=== PATIENT | male | born 1940 | race Caucasian/White ===

== ENCOUNTER → 2023-12-28 | Outpatient (CLI) | payer MEDICARE, BC, SELFPAY ==
[2023-12-28 09:40] LABS: Basophils # (Auto) 0.1 Thou/mm3 (0.0-0.2); Basophils % (Auto) 2 % (0-2.5); Eosinophils # (Auto) 0.3 Thou/mm3 (0.0-0.5); Eosinophils % (Auto) 6 % (0-10); Hemoglobin 13.9 g/dL (13.5-16.0); Immature Granulocytes % (Auto) 0 % (0-0); Immature Granulocytes Auto 0.01 Thou/mm3 (0.00-0.00); Lymphocytes # (Auto) 1.8 Thou/mm3 (1.0-4.8); Lymphocytes % (Auto) 34 % (10-50); Mean Corpuscular HGB Conc 33.9 g/dl (31.0-37.0); Mean Corpuscular Hemoglobin 28.8 pg (25.0-35.0); Mean Corpuscular Volume 85 fL (80-100); Monocytes # (Auto) 0.5 Thou/mm3 (0.0-0.8); Monocytes % (Auto) 8 % (0-12); Neutrophils # (Auto) 2.6 Thou/mm3 (1.8-7.7); Neutrophils % (Auto) 49 % (37-80); Nucleated Red Blood Cell % 0 /100 WBC (0); Platelet Count 220 Thou/mm3 (140-440); RDW Standard Deviation 39.7 fL (35.1-43.9); Red Blood Count 4.82 Miln/mm3 (4.50-5.90); White Blood Count 5.3 Thou/mm3 (3.8-10.6)
[2023-12-28 10:02] LABS: Albumin, Serum 4.4 gm/dL (3.4-4.8); Anion Gap 8 (7-16); BUN/Creatinine Ratio 13 Ratio (12-20); Blood Urea Nitrogen 24 mg/dL (9-23); Calcium 9.2 mg/dL (8.3-10.6); Calcium (Corrected) 9.2 mg/dL (8.5-10.1); Carbon Dioxide 24.3 mMol/L (20.0-31.0); Chloride 108 mMol/L (98-107); Creatinine (Component) 1.8 mg/dL (0.6-1.3); Glucose 176 mg/dL (74-106); Osmolality,Calculated 287 (275-295); Phosphorous 3.7 mg/dL (2.4-5.1); Potassium 4.2 mMol/L (3.4-5.1); Sodium 140 mMol/L (136-145); eGFR 37 See Note
[2023-12-28 10:03] LABS: Parathyroid Hormone Intact 88.4 pg/ml (18.5-88.0)
[2023-12-28 10:16] LABS: Collection Type, Urine Clean Catch; Squamous Epithelial Cell,Urine 0 /hpf (0-5)
[2023-12-28 10:46] LABS: Bacteria,Urine 1+; Bilirubin,Urine Negative (Negative); Blood,Urine Negative (Negative); Clarity,Urine Clear (Clear/Hazy); Color,Urine Lt-Yellow (Lt Yel-Yel); Glucose, Urine Negative (Negative); Ketones,Urine Negative (Negative); Leukocyte Esterase,Urine Positive (Negative); Nitrite,Urine Negative (Negative); Protein,Urine 1+ (Neg - Trace); RBC,Urine 12 /hpf (0-3); Specific Gravity,Urine 1.017 (1.001-1.035); Urobilinogen,Urine Negative mg/dL (0.0-1.0); WBC,Urine 59 /hpf (0-5)
[2023-12-28 10:50] LABS: Creatinine MALB Rnd Ur 90 mg/dL (30-125); Microalbumin Creat Ratio 93 mg/gCrea (<30); Microalbumin, Random Urine 84 mg/L (0-300)
== END | disposition home or self-care (01) ==
LOC: COPL 09:07
PROVIDERS: PCP Family Medicine; Referring Provider Internal Medicine; Visit Provider Internal Medicine
DX: I12.9 Hypertensive chronic kidney disease with stage 1 through stage 4 chronic kidney disease, or unspecified chronic kidney disease (principal); N18.30 Chronic kidney disease, stage 3 unspecified
CPT/HCPCS: 36415; 80069; 81001; 82043; 82570; 83970; 85025

== ENCOUNTER → 2024-04-10 | Outpatient (CLI) | payer MEDICARE, BC, SELFPAY ==
[2024-04-10 13:11] LABS: Collection Type, Urine Clean Catch; Squamous Epithelial Cell,Urine 0 /hpf (0-5)
[2024-04-10 13:33] LABS: Bilirubin,Urine Negative (Negative); Blood,Urine Negative (Negative); Clarity,Urine Clear (Clear/Hazy); Color,Urine Lt-Yellow (Lt Yel-Yel); Glucose, Urine 3+ (Negative); Ketones,Urine Negative (Negative); Leukocyte Esterase,Urine Negative (Negative); Nitrite,Urine Negative (Negative); Protein,Urine Trace (Neg - Trace); RBC,Urine 2 /hpf (0-3); Specific Gravity,Urine 1.015 (1.001-1.035); Urobilinogen,Urine Negative mg/dL (0.0-1.0); WBC,Urine 14 /hpf (0-5)
[2024-04-10 13:39] LABS: Albumin, Serum 4.4 gm/dL (3.4-4.8); Anion Gap 9 (7-16); BUN/Creatinine Ratio 17 Ratio (12-20); Blood Urea Nitrogen 25 mg/dL (9-23); Carbon Dioxide 25.6 mMol/L (20.0-31.0); Chloride 107 mMol/L (98-107); Creatinine (Component) 1.5 mg/dL (0.6-1.3); Glucose 143 mg/dL (74-106); Osmolality,Calculated 289 (275-295); Phosphorous 3.3 mg/dL (2.4-5.1); Potassium 4.1 mMol/L (3.4-5.1); Sodium 142 mMol/L (136-145); eGFR 45 See Note
[2024-04-10 13:54] LABS: Culture Indicated,Urine Yes
== END | disposition home or self-care (01) ==
LOC: COPL 11:55
PROVIDERS: PCP Family Medicine; Referring Provider Nurse Practitioner Family; Visit Provider Internal Medicine
DX: I12.9 Hypertensive chronic kidney disease with stage 1 through stage 4 chronic kidney disease, or unspecified chronic kidney disease (principal); N18.30 Chronic kidney disease, stage 3 unspecified
CPT/HCPCS: 36415; 80069; 81001; 83970; 87086

== ENCOUNTER → 2024-04-13 | Outpatient (CLI) | payer MEDICARE, BC, SELFPAY ==
[2024-04-13 08:56] LABS: Basophils # (Auto) 0.1 Thou/mm3 (0.0-0.2); Basophils % (Auto) 2 % (0-2.5); Eosinophils # (Auto) 0.3 Thou/mm3 (0.0-0.5); Eosinophils % (Auto) 6 % (0-10); Hematocrit 38.2 % (41.0-53.0); Hemoglobin 13.2 g/dL (13.5-16.0); Immature Granulocytes % (Auto) 0 % (0-0); Immature Granulocytes Auto 0.01 Thou/mm3 (0.00-0.00); Lymphocytes # (Auto) 2.1 Thou/mm3 (1.0-4.8); Lymphocytes % (Auto) 37 % (10-50); Mean Corpuscular HGB Conc 34.6 g/dl (31.0-37.0); Mean Corpuscular Hemoglobin 29.6 pg (25.0-35.0); Mean Corpuscular Volume 86 fL (80-100); Monocytes # (Auto) 0.5 Thou/mm3 (0.0-0.8); Monocytes % (Auto) 8 % (0-12); Neutrophils # (Auto) 2.7 Thou/mm3 (1.8-7.7); Neutrophils % (Auto) 47 % (37-80); Nucleated Red Blood Cell % 0 /100 WBC (0); Platelet Count 186 Thou/mm3 (140-440); RDW Standard Deviation 40.5 fL (35.1-43.9); Red Blood Count 4.46 Miln/mm3 (4.50-5.90); White Blood Count 5.7 Thou/mm3 (3.8-10.6)
[2024-04-13 09:03] LABS: Glucose Estimated Average 151 mg/dL (80-131); Hemoglobin A1C 6.9 % Hgb (4.8-6.0)
[2024-04-13 09:20] LABS: Vitamin B12 257 pg/mL (211-911); Vitamin D 25 Hydroxy Total 35.1 ng/mL (7.3-40.2)
[2024-04-13 09:22] LABS: PSA Medicare Annual Scrn 0.03 ng/mL (0-4.00)
[2024-04-13 09:31] LABS: Alanine Aminotransferase 15 U/L (10-49); Albumin, Serum 4.2 gm/dL (3.4-4.8); Albumin/Globulin Ratio 2.2 (1.2-2.2); Alkaline Phosphatase 70 U/L (46-116); Anion Gap 8 (7-16); Aspartate Amino Transferase 15 U/L (0-34); BUN/Creatinine Ratio 15 Ratio (12-20); Bilirubin,Total 0.5 mg/dL (0.3-1.2); Blood Urea Nitrogen 22 mg/dL (9-23); Calcium 9.1 mg/dL (8.3-10.6); Calcium (Corrected) 9.1 mg/dL (8.5-10.1); Carbon Dioxide 24.6 mMol/L (20.0-31.0); Cardiac Risk Estimate 2.3 RATIO (4.0-6.7); Chloride 111 mMol/L (98-107); Cholesterol 89 mg/dL (132-200); Creatinine (Component) 1.5 mg/dL (0.6-1.3); Globulin 1.9 gm/dL (2.3-3.5); Glucose 131 mg/dL (74-106); HDL Cholesterol 38 mg/dL (40-60); LDL Cholesterol,Calculated 29 mg/dL (0-130); Osmolality,Calculated 292 (275-295); Potassium 4.5 mMol/L (3.4-5.1); Sodium 144 mMol/L (136-145); Thyroid Stimulating Hormone 2.34 uIU/mL (0.55-4.78); Total Protein 6.1 gm/dL (5.7-8.2); Triglycerides 110 mg/dL (30-150); Uric Acid 4.6 mg/dL (3.7-9.2); eGFR 45 See Note
[2024-04-13 09:35] LABS: Collection Type, Urine Clean Catch; Squamous Epithelial Cell,Urine 0 /hpf (0-5)
[2024-04-13 10:17] LABS: Bilirubin,Urine Negative (Negative); Blood,Urine Trace (Negative); Clarity,Urine Clear (Clear/Hazy); Color,Urine Lt-Yellow (Lt Yel-Yel); Glucose, Urine Negative (Negative); Hyaline Casts,Urine < 1 /hpf (0-1); Ketones,Urine Negative (Negative); Leukocyte Esterase,Urine Negative (Negative); Nitrite,Urine Negative (Negative); Protein,Urine Trace (Neg - Trace); RBC,Urine 18 /hpf (0-3); Specific Gravity,Urine 1.015 (1.001-1.035); Urobilinogen,Urine Negative mg/dL (0.0-1.0); WBC,Urine 37 /hpf (0-5)
[2024-04-13 10:32] LABS: Creatinine MALB Rnd Ur 70 mg/dL (30-125); Microalbumin Creat Ratio 74 mg/gCrea (<30); Microalbumin, Random Urine 52 mg/L (0-300)
== END | disposition home or self-care (01) ==
PROVIDERS: PCP Internal Medicine; Referring Provider Internal Medicine; Visit Provider Internal Medicine
DX: E78.5 Hyperlipidemia, unspecified (principal); I12.9 Hypertensive chronic kidney disease with stage 1 through stage 4 chronic kidney disease, or unspecified chronic kidney disease; E11.22 Type 2 diabetes mellitus with diabetic chronic kidney disease; N18.30 Chronic kidney disease, stage 3 unspecified; D51.9 Vitamin B12 deficiency anemia, unspecified; E55.9 Vitamin D deficiency, unspecified
CPT/HCPCS: 36415; 80053; 80061; 81001; 82043; 82306; 82570; 82607; 83036; 84153; 84443; 84550; 85025; G0103

== ENCOUNTER → 2024-05-15 | Outpatient (CLI) | payer MEDICARE, BC, SELFPAY ==
--- NOTE | 2024-05-15 14:17 | XR_ITS ---
Examination: Abdomen AP single view Technique: AP portable supine abdomen, single view Exam date and time: May 15, 2024 1419 hours INDICATIONS: Abdominal pain beginning 3 weeks ago INDICATIONS: Diagnosis bladder cancer, post removal right kidney and bladder reconstruction FINDINGS: Numerous surgical clips in the pelvis Mild small bowel ileus Abundant stool in the colon No obstruction No free air IMPRESSION: Abundant stool in the colon, no obstruction Mild small bowel ileus
== END | disposition home or self-care (01) ==
LOC: CDIM 13:49
PROVIDERS: PCP Nurse Practitioner Family; Referring Provider Nurse Practitioner Family; Visit Provider Nurse Practitioner Family
DX: K59.00 Constipation, unspecified (principal)
CPT/HCPCS: 74018

== ENCOUNTER → 2024-06-27 | Outpatient (BNVA) | payer MEDICARE, BC, SELFPAY | END | disposition home or self-care (01) | PROVIDERS: PCP Family Medicine; Referring Provider Family Medicine; Visit Provider Urology | DX: C64.1 Malignant neoplasm of right kidney, except renal pelvis (principal); C67.9 Malignant neoplasm of bladder, unspecified; I25.10 Atherosclerotic heart disease of native coronary artery without angina pectoris; N18.30 Chronic kidney disease, stage 3 unspecified; Z86.73 Personal history of transient ischemic attack (TIA), and cerebral infarction without residual deficits; K21.9 Gastro-esophageal reflux disease without esophagitis | CPT/HCPCS: 81003; 99212; G0463 ==

== ENCOUNTER → 2024-07-31 | Outpatient (CLI) | payer MEDICARE, BC, SELFPAY ==
[2024-07-31 14:30] LABS: Collection Type, Urine Clean Catch
[2024-07-31 14:46] LABS: Basophils # (Auto) 0.1 Thou/mm3 (0.0-0.2); Basophils % (Auto) 2 % (0-2.5); Eosinophils # (Auto) 0.3 Thou/mm3 (0.0-0.5); Eosinophils % (Auto) 3 % (0-10); Hematocrit 37.5 % (41.0-53.0); Hemoglobin 12.9 g/dL (13.5-16.0); Immature Granulocytes % (Auto) 0 % (0-0); Immature Granulocytes Auto 0.03 Thou/mm3 (0.00-0.00); Lymphocytes # (Auto) 2.5 Thou/mm3 (1.0-4.8); Lymphocytes % (Auto) 32 % (10-50); Mean Corpuscular HGB Conc 34.4 g/dl (31.0-37.0); Mean Corpuscular Hemoglobin 29.5 pg (25.0-35.0); Mean Corpuscular Volume 86 fL (80-100); Monocytes # (Auto) 0.6 Thou/mm3 (0.0-0.8); Monocytes % (Auto) 7 % (0-12); Neutrophils # (Auto) 4.4 Thou/mm3 (1.8-7.7); Neutrophils % (Auto) 56 % (37-80); Nucleated Red Blood Cell % 0 /100 WBC (0); Platelet Count 238 Thou/mm3 (140-440); RDW Standard Deviation 39.3 fL (35.1-43.9); Red Blood Count 4.37 Miln/mm3 (4.50-5.90); White Blood Count 7.9 Thou/mm3 (3.8-10.6)
[2024-07-31 14:49] LABS: Glucose Estimated Average 140 mg/dL (80-131); Hemoglobin A1C 6.5 % Hgb (4.8-6.0)
[2024-07-31 14:59] LABS: Alanine Aminotransferase 8 U/L (10-49); Albumin, Serum 4.2 gm/dL (3.4-4.8); Albumin/Globulin Ratio 2.1 (1.2-2.2); Alkaline Phosphatase 55 U/L (46-116); Anion Gap 10 (7-16); Aspartate Amino Transferase 16 U/L (0-34); BUN/Creatinine Ratio 18 Ratio (12-20); Bilirubin,Total 0.3 mg/dL (0.3-1.2); Blood Urea Nitrogen 28 mg/dL (9-23); Calcium 8.8 mg/dL (8.3-10.6); Calcium (Corrected) 8.8 mg/dL (8.5-10.1); Carbon Dioxide 22.7 mMol/L (20.0-31.0); Cardiac Risk Estimate 4.3 RATIO (4.0-6.7); Chloride 108 mMol/L (98-107); Cholesterol 153 mg/dL (132-200); Creatinine (Component) 1.6 mg/dL (0.6-1.3); Glucose 133 mg/dL (74-106); HDL Cholesterol 36 mg/dL (40-60); LDL Cholesterol,Calculated 40 mg/dL (0-130); Osmolality,Calculated 288 (275-295); Potassium 4.3 mMol/L (3.4-5.1); Sodium 141 mMol/L (136-145); Total Protein 6.2 gm/dL (5.7-8.2); Triglycerides 386 mg/dL (30-150); eGFR 42 See Note
[2024-07-31 15:28] LABS: Bilirubin,Urine Negative (Negative); Blood,Urine Trace (Negative); Clarity,Urine Clear (Clear/Hazy); Color,Urine Lt-Yellow (Lt Yel-Yel); Glucose, Urine Negative (Negative); Ketones,Urine Negative (Negative); Leukocyte Esterase,Urine Negative (Negative); Nitrite,Urine Negative (Negative); Protein,Urine Trace (Neg - Trace); RBC,Urine 15 /hpf (0-3); Specific Gravity,Urine 1.017 (1.001-1.035); Squamous Epithelial Cell,Urine < 1 /hpf (0-5); Urobilinogen,Urine Negative mg/dL (0.0-1.0); WBC,Urine 29 /hpf (0-5)
[2024-07-31 15:37] LABS: Creatinine MALB Rnd Ur 61 mg/dL (30-125); Microalbumin Creat Ratio 130 mg/gCrea (<30); Microalbumin, Random Urine 79 mg/L (0-300)
== END | disposition home or self-care (01) ==
LOC: COPL 13:30
PROVIDERS: PCP Nurse Practitioner Family; Referring Provider Family Medicine; Visit Provider Internal Medicine
DX: E11.22 Type 2 diabetes mellitus with diabetic chronic kidney disease (principal); N18.30 Chronic kidney disease, stage 3 unspecified; N25.81 Secondary hyperparathyroidism of renal origin; E78.1 Pure hyperglyceridemia; R80.9 Proteinuria, unspecified
CPT/HCPCS: 36415; 80053; 80061; 81001; 82043; 82306; 82570; 83036; 83970; 85025

== ENCOUNTER → 2024-08-15 | Outpatient (CLI) | payer MEDICARE, BC, SELFPAY ==
--- NOTE | 2024-08-15 | XR_ITS ---
Examination: Lumbar spine 3 views Technique one AP lateral coned lateral lower lumbar spine 3 views Date and time: August 15, 2024 1238 hours INDICATIONS: Low back pain beginning several years ago. FINDINGS: Prominent osteopenia No lumbar fracture. Advanced degenerative disc disease L4-L5, L5-S1, progressed at the L5-S1 level compared to 10/21/2015 IMPRESSION: Advanced degenerative disc disease L4-L5, L5-S1
--- NOTE | 2024-08-15 | XR_ITS ---
Examination: Thoracic spine 3 views Technique one AP lateral coned lateral upper dorsal spine 3 views Date and time: August 15, 2024 1240 hours INDICATIONS: Upper back pain beginning several years ago. FINDINGS: Prominent osteopenia. No thoracic fracture. Mild diffuse thoracic degenerative disc disease Prominent thoracic spondylosis IMPRESSION: No thoracic fracture Mild diffuse thoracic degenerative disc disease Prominent thoracic spondylosis
== END | disposition home or self-care (01) ==
PROVIDERS: PCP Nurse Practitioner; Referring Provider Nurse Practitioner; Visit Provider Nurse Practitioner
DX: M51.34 Other intervertebral disc degeneration, thoracic region (principal); M47.9 Spondylosis, unspecified; M51.360 Other intervertebral disc degeneration, lumbar region with discogenic back pain only; M51.370 Other intervertebral disc degeneration, lumbosacral region with discogenic back pain only
CPT/HCPCS: 72072; 72100

== ENCOUNTER → 2024-09-11 | Outpatient (BNVA) | payer MEDICARE, BC, SELFPAY | END | disposition home or self-care (01) | PROVIDERS: PCP Family Medicine; Referring Provider Family Medicine; Visit Provider Urology | DX: C64.1 Malignant neoplasm of right kidney, except renal pelvis (principal); N18.30 Chronic kidney disease, stage 3 unspecified; I25.10 Atherosclerotic heart disease of native coronary artery without angina pectoris; C67.9 Malignant neoplasm of bladder, unspecified; Z86.718 Personal history of other venous thrombosis and embolism; Z86.73 Personal history of transient ischemic attack (TIA), and cerebral infarction without residual deficits | CPT/HCPCS: 81003; 99212; G0463 ==

== ENCOUNTER → 2024-09-18 | Outpatient (CLI) | payer MEDICARE, BC, SELFPAY ==
[2024-09-18 09:51] LABS: Basophils # (Auto) 0.1 Thou/mm3 (0.0-0.2); Basophils % (Auto) 2 % (0-2.5); Eosinophils # (Auto) 0.3 Thou/mm3 (0.0-0.5); Eosinophils % (Auto) 4 % (0-10); Hematocrit 43.5 % (41.0-53.0); Hemoglobin 14.6 g/dL (13.5-16.0); Immature Granulocytes Auto 0.03 Thou/mm3 (0.00-0.00); Lymphocytes # (Auto) 1.9 Thou/mm3 (1.0-4.8); Lymphocytes % (Auto) 27 % (10-50); Mean Corpuscular HGB Conc 33.6 g/dl (31.0-37.0); Mean Corpuscular Hemoglobin 29.1 pg (25.0-35.0); Mean Corpuscular Volume 87 fL (80-100); Monocytes # (Auto) 0.5 Thou/mm3 (0.0-0.8); Monocytes % (Auto) 7 % (0-12); Neutrophils # (Auto) 4.3 Thou/mm3 (1.8-7.7); Neutrophils % (Auto) 60 % (37-80); Nucleated Red Blood Cell # 0.00 Thou/mm3 (0.00-0.00); Nucleated Red Blood Cell % 0 /100 WBC (0); Platelet Count 210 Thou/mm3 (140-440); RDW Standard Deviation 39.6 fL (35.1-43.9); Red Blood Count 5.02 Miln/mm3 (4.50-5.90); White Blood Count 7.1 Thou/mm3 (3.8-10.6)
[2024-09-18 10:03] LABS: Parathyroid Hormone Intact 91.4 pg/ml (18.5-88.0)
[2024-09-18 10:33] LABS: Alanine Aminotransferase 7 U/L (10-49); Albumin, Serum 4.6 gm/dL (3.4-4.8); Albumin/Globulin Ratio 2.1 (1.2-2.2); Alkaline Phosphatase 55 U/L (46-116); Anion Gap 9 (7-16); Aspartate Amino Transferase 16 U/L (0-34); BUN/Creatinine Ratio 16 Ratio (12-20); Bilirubin,Total 0.8 mg/dL (0.3-1.2); Blood Urea Nitrogen 26 mg/dL (9-23); Calcium 9.1 mg/dL (8.3-10.6); Calcium (Corrected) 9.1 mg/dL (8.5-10.1); Carbon Dioxide 26.0 mMol/L (20.0-31.0); Cardiac Risk Estimate 5.5 RATIO (4.0-6.7); Chloride 105 mMol/L (98-107); Cholesterol 205 mg/dL (132-200); Creatinine (Component) 1.6 mg/dL (0.6-1.3); Free T3 2.9 pg/mL (2.3-4.2); Free T4 (Free Thyroxine) 1.18 ng/dL (0.89-1.76); Globulin 2.2 gm/dL (2.3-3.5); Glucose 133 mg/dL (74-106); HDL Cholesterol 37 mg/dL (40-60); LDL Cholesterol,Calculated 116 mg/dL (0-130); Osmolality,Calculated 286 (275-295); Potassium 4.6 mMol/L (3.4-5.1); Sodium 140 mMol/L (136-145); Thyroid Stimulating Hormone 1.80 uIU/mL (0.55-4.78); Total Protein 6.8 gm/dL (5.7-8.2); Triglycerides 259 mg/dL (30-150); eGFR 42 See Note
[2024-09-25 06:55] LABS: TSI, Thyroid Stimulating Ig* <89 % baseline (<140); Thyroid Peroxidase Antibodies* <1 IU/mL (<9); Vitamin D,1,25 (OH)2,Total 11 pg/mL (18-72); Vitamin D2, 1,25 (OH)2 <8 pg/mL; Vitamin D3, 1,25 (OH)2 11 pg/mL; Zinc, Plasma* 88 mcg/dL (60-130)
== END | disposition home or self-care (01) ==
PROVIDERS: PCP Nurse Practitioner; Referring Provider Internal Medicine Endocrinology, Diabetes & Metabolism; Visit Provider Internal Medicine Endocrinology, Diabetes & Metabolism
DX: E04.2 Nontoxic multinodular goiter (principal)
CPT/HCPCS: 36415; 80053; 80061; 82652; 83970; 84439; 84443; 84445; 84481; 84630; 85025; 86376

== ENCOUNTER → 2024-10-30 | Outpatient (CLI) | payer MEDICARE, BC, SELFPAY ==
[2024-10-30 16:21] LABS: Parathyroid Hormone Intact 61.1 pg/ml (18.5-88.0)
[2024-10-30 16:29] LABS: Vitamin D 25 Hydroxy Total 29.7 ng/mL (7.3-40.2)
[2024-10-30 16:34] LABS: Alanine Aminotransferase 8 U/L (10-49); Albumin, Serum 4.4 gm/dL (3.4-4.8); Albumin/Globulin Ratio 2.1 (1.2-2.2); Alkaline Phosphatase 58 U/L (46-116); Anion Gap 6 (7-16); Aspartate Amino Transferase 15 U/L (0-34); BUN/Creatinine Ratio 13 Ratio (12-20); Bilirubin,Total 0.4 mg/dL (0.3-1.2); Blood Urea Nitrogen 23 mg/dL (9-23); Calcium 9.4 mg/dL (8.3-10.6); Calcium (Corrected) 9.4 mg/dL (8.5-10.1); Carbon Dioxide 25.1 mMol/L (20.0-31.0); Chloride 110 mMol/L (98-107); Creatinine (Component) 1.8 mg/dL (0.6-1.3); Globulin 2.1 gm/dL (2.3-3.5); Glucose 111 mg/dL (74-106); Osmolality,Calculated 285 (275-295); Phosphorous 3.9 mg/dL (2.4-5.1); Potassium 4.7 mMol/L (3.4-5.1); Sodium 141 mMol/L (136-145); Total Protein 6.5 gm/dL (5.7-8.2); eGFR 36 See Note
[2024-11-06 07:16] LABS: Vitamin D,1,25 (OH)2,Total 27 pg/mL (18-72); Vitamin D2, 1,25 (OH)2 <8 pg/mL; Vitamin D3, 1,25 (OH)2 27 pg/mL
== END | disposition home or self-care (01) ==
LOC: COPL 14:24
PROVIDERS: PCP Family Medicine; Referring Provider Internal Medicine Endocrinology, Diabetes & Metabolism; Visit Provider Internal Medicine
DX: N25.81 Secondary hyperparathyroidism of renal origin (principal); E55.9 Vitamin D deficiency, unspecified; E04.2 Nontoxic multinodular goiter; N18.32 Chronic kidney disease, stage 3b
CPT/HCPCS: 36415; 80053; 82306; 82652; 83970; 84100

== ENCOUNTER → 2024-11-13 | Outpatient (CLI) | payer MEDICARE, BC, SELFPAY ==
[2024-11-13 12:28] LABS: Parathyroid Hormone Intact 43.8 pg/ml (18.5-88.0)
[2024-11-13 12:33] LABS: Alanine Aminotransferase 10 U/L (10-49); Albumin, Serum 4.7 gm/dL (3.4-4.8); Albumin/Globulin Ratio 2.0 (1.2-2.2); Alkaline Phosphatase 57 U/L (46-116); Anion Gap 10 (7-16); Aspartate Amino Transferase 17 U/L (0-34); BUN/Creatinine Ratio 11 Ratio (12-20); Bilirubin,Total 0.7 mg/dL (0.3-1.2); Blood Urea Nitrogen 18 mg/dL (9-23); Calcium 10.0 mg/dL (8.3-10.6); Calcium (Corrected) 10.0 mg/dL (8.5-10.1); Carbon Dioxide 24.8 mMol/L (20.0-31.0); Chloride 106 mMol/L (98-107); Creatinine (Component) 1.6 mg/dL (0.6-1.3); Globulin 2.4 gm/dL (2.3-3.5); Glucose 119 mg/dL (74-106); Osmolality,Calculated 284 (275-295); Phosphorous 3.2 mg/dL (2.4-5.1); Potassium 4.4 mMol/L (3.4-5.1); Sodium 141 mMol/L (136-145); Total Protein 7.1 gm/dL (5.7-8.2); eGFR 42 See Note
[2024-11-20 06:29] LABS: Vitamin D,1,25 (OH)2,Total 37 pg/mL (18-72); Vitamin D2, 1,25 (OH)2 <8 pg/mL; Vitamin D3, 1,25 (OH)2 37 pg/mL
== END | disposition home or self-care (01) ==
LOC: COPL 11:26
PROVIDERS: PCP Family Medicine; Referring Provider Internal Medicine Endocrinology, Diabetes & Metabolism; Visit Provider Internal Medicine Endocrinology, Diabetes & Metabolism
DX: E11.22 Type 2 diabetes mellitus with diabetic chronic kidney disease (principal); N18.32 Chronic kidney disease, stage 3b; E55.9 Vitamin D deficiency, unspecified; E04.2 Nontoxic multinodular goiter
CPT/HCPCS: 36415; 80053; 82652; 83970; 84100

== ENCOUNTER → 2024-11-20 | Outpatient (CLI) | payer MEDICARE, BC, SELFPAY ==
--- NOTE | 2024-11-20 12:15 | XR_ITS ---
Examination: Abdomen sonogram, complete Date and time of exam: November 20, 2024, 1220 hours INDICATIONS: Assess severe right lower abdominal pain beginning 2 days ago. Technique: Multiple real-time grayscale transabdominal sonographic images of the abdomen have been obtained. Findings: Negative for gallstones Gallbladder wall not thickened 0.3 cm Pancreatic head 1.9 cm Aorta not enlarged. Liver 12.8 cm fatty infiltration Normal hepatopetal portal venous flow Patent IVC Absent right kidney Left kidney 10.7 cm renal cortex 1.6 cm, 20 mm upper pole cyst Mild left hydronephrosis Spleen 10.0 cm IMPRESSION: Negative for cholelithiasis Calcification in the gallbladder wall but gallbladder wall is not thickened Mild left hydronephrosis
== END | disposition home or self-care (01) ==
LOC: CDIM 11:46
PROVIDERS: PCP Family Medicine; Referring Provider Student in an Organized Health Care Education/Training Program; Visit Provider Student in an Organized Health Care Education/Training Program
DX: K82.8 Other specified diseases of gallbladder (principal); N13.30 Unspecified hydronephrosis
CPT/HCPCS: 76700

== ENCOUNTER 2025-01-12 09:30 | Emergency (ER) | payer OTHER, MEDICARE, BC, SELFPAY ==
[2025-01-12 09:31] VITALS: BMI 22.9
[2025-01-12 09:43] VITALS: BP 136/86; PULSE 61; RESP 18; TEMP 36.4; O2SAT 98
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
--- NOTE | 2025-01-12 09:57 | XR_ITS ---
EXAMINATION: PA chest single view TECHNIQUE: Upright PA chest single view Date and time: January 12, 2025, 1010 hours, comparison July 17, 2021 INDICATIONS: Onset chest pain today. FINDINGS: Normal heart size No pneumonia or pulmonary edema Moderate osteopenia IMPRESSION: No pneumonia or pulmonary edema
--- NOTE | 2025-01-12 09:57 | EKG_ITS ---
[facility] Test Date: 2025-01-12 Pat Name: IRMA MUÑIZ Department: Room: - Gender: Male [employer]: : [id number] Requested By: Gustabo Landis Order Number: [id number] Reading MD: Gustabo Landis Measurements Intervals [place] Rate: 58 P: 48 NE: 197 QRS: 2 QRSD: 90 T: 26 QT: 418 QTc: 412 Interpretive Statements SINUS BRADYCARDIA LOW QRS VOLTAGE IN PRECORDIAL LEADS [QRS DEFLECTION < 1.0 mV IN CHEST LEADS] Compared to ECG 07/18/2021 07:13:52 Low QRS voltage now present Sinus rhythm no longer present /store/S0/[id number]/ecg/[id number].pdf
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
[2025-01-12 10:22] LABS: Basophils # (Auto) 0.1 Thou/mm3 (0.0-0.2); Basophils % (Auto) 2 % (0-2.5); Eosinophils # (Auto) 0.2 Thou/mm3 (0.0-0.5); Eosinophils % (Auto) 4 % (0-10); Hematocrit 42.2 % (41.0-53.0); Hemoglobin 14.0 g/dL (13.5-16.0); Immature Granulocytes Auto 0.01 Thou/mm3 (0.00-0.00); Lymphocytes # (Auto) 1.8 Thou/mm3 (1.0-4.8); Lymphocytes % (Auto) 34 % (10-50); Mean Corpuscular HGB Conc 33.2 g/dl (31.0-37.0); Mean Corpuscular Hemoglobin 28.7 pg (25.0-35.0); Mean Corpuscular Volume 87 fL (80-100); Monocytes # (Auto) 0.5 Thou/mm3 (0.0-0.8); Monocytes % (Auto) 8 % (0-12); Neutrophils # (Auto) 2.8 Thou/mm3 (1.8-7.7); Neutrophils % (Auto) 52 % (37-80); Nucleated Red Blood Cell # 0.00 Thou/mm3 (0.00-0.00); Nucleated Red Blood Cell % 0 /100 WBC (0); Platelet Count 213 Thou/mm3 (140-440); RDW Standard Deviation 39.8 fL (35.1-43.9); Red Blood Count 4.88 Miln/mm3 (4.50-5.90); White Blood Count 5.4 Thou/mm3 (3.8-10.6)
[2025-01-12 10:38] LABS: INR 1.1 (0.9-1.3); Partial Thromboplastin Time 28.0 Seconds (22.0-36.0); Prothrombin Time 11.4 Seconds (9.0-12.2)
[2025-01-12 10:46] LABS: B-Type Natriuretic Peptide 41 pg/mL (0-100)
[2025-01-12 10:55] LABS: Alanine Aminotransferase 7 U/L (10-49); Albumin, Serum 4.8 gm/dL (3.4-4.8); Albumin/Globulin Ratio 1.9 (1.2-2.2); Alkaline Phosphatase 53 U/L (46-116); Anion Gap 8 (7-16); Aspartate Amino Transferase 17 U/L (0-34); BUN/Creatinine Ratio 15 Ratio (12-20); Bilirubin,Total 0.6 mg/dL (0.3-1.2); Blood Urea Nitrogen 25 mg/dL (9-23); Calcium 9.1 mg/dL (8.3-10.6); Calcium (Corrected) 9.1 mg/dL (8.5-10.1); Carbon Dioxide 24.8 mMol/L (20.0-31.0); Chloride 109 mMol/L (98-107); Creatinine (Component) 1.7 mg/dL (0.6-1.3); Estimated Creatinine Clearance 32.6 mL/min (>60); Globulin 2.5 gm/dL (2.3-3.5); Glucose 143 mg/dL (74-106); Osmolality,Calculated 289 (275-295); Potassium 4.1 mMol/L (3.4-5.1); Sodium 142 mMol/L (136-145); Total Protein 7.3 gm/dL (5.7-8.2); Troponin I < 0.020 ng/mL (0.0-0.045); eGFR 39 See Note
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
[2025-01-12] MEDS: SODIUM CHLORIDE 0.9% 1000 ML 1,000 ML 999 ML IV (11:31)
[2025-01-12 11:43] LABS: Basophils # (Auto) 0.1 Thou/mm3 (0.0-0.2); Basophils % (Auto) 2 % (0-2.5); Eosinophils # (Auto) 0.2 Thou/mm3 (0.0-0.5); Eosinophils % (Auto) 4 % (0-10); Hematocrit 39.8 % (41.0-53.0); Hemoglobin 13.4 g/dL (13.5-16.0); Immature Granulocytes Auto 0.01 Thou/mm3 (0.00-0.00); Lymphocytes # (Auto) 1.7 Thou/mm3 (1.0-4.8); Lymphocytes % (Auto) 33 % (10-50); Mean Corpuscular HGB Conc 33.7 g/dl (31.0-37.0); Mean Corpuscular Hemoglobin 29.1 pg (25.0-35.0); Mean Corpuscular Volume 87 fL (80-100); Monocytes # (Auto) 0.5 Thou/mm3 (0.0-0.8); Monocytes % (Auto) 9 % (0-12); Neutrophils # (Auto) 2.6 Thou/mm3 (1.8-7.7); Neutrophils % (Auto) 51 % (37-80); Nucleated Red Blood Cell # 0.00 Thou/mm3 (0.00-0.00); Nucleated Red Blood Cell % 0 /100 WBC (0); Platelet Count 154 Thou/mm3 (140-440); RDW Standard Deviation 39.7 fL (35.1-43.9); Red Blood Count 4.60 Miln/mm3 (4.50-5.90); White Blood Count 5.2 Thou/mm3 (3.8-10.6)
[2025-01-12 11:47] VITALS: BP 155/80; PULSE 57; RESP 17; TEMP 36.5; O2SAT 98
[2025-01-12 11:58] LABS: Troponin I < 0.020 ng/mL (0.0-0.045)
[2025-01-12 12:09] LABS: Collection Type, Urine Clean Catch
[2025-01-12 12:19] LABS: Bilirubin,Urine Negative (Negative); Blood,Urine Trace (Negative); Clarity,Urine Clear (Clear/Hazy); Color,Urine Lt-Yellow (Lt Yel-Yel); Glucose, Urine Negative (Negative); Ketones,Urine Negative (Negative); Leukocyte Esterase,Urine Positive (Negative); Nitrite,Urine Negative (Negative); PH,Urine 6.0 (5.0-7.0); Protein,Urine 1+ (Neg - Trace); RBC,Urine 18 /hpf (0-3); Specific Gravity,Urine 1.017 (1.001-1.035); Squamous Epithelial Cell,Urine < 1 /hpf (0-5); Urobilinogen,Urine Negative mg/dL (0.0-1.0); WBC,Urine 61 /hpf (0-5)
[2025-01-12 14:34] VITALS: BP 163/91; PULSE 71; RESP 16; TEMP 36.2; O2SAT 100
[2025-01-12 15:17] VITALS: BP 135/92; PULSE 84; RESP 18; TEMP 37.1; O2SAT 99
== END 2025-01-12 15:18 | disposition home or self-care (01) ==
PROVIDERS: Nurse Practitioner Family; Emergency Provider Family Medicine; PCP Family Medicine
DX: S19.9XXA Unspecified injury of neck, initial encounter (principal); S09.90XA Unspecified injury of head, initial encounter; R07.9 Chest pain, unspecified; R00.1 Bradycardia, unspecified; I10 Essential (primary) hypertension; V89.9XXA Person injured in unspecified vehicle accident, initial encounter; Y93.89 Activity, other specified; Y92.410 Unspecified street and highway as the place of occurrence of the external cause; Z86.73 Personal history of transient ischemic attack (TIA), and cerebral infarction without residual deficits
CPT/HCPCS: 36415; 70450; 71045; 72125; 80053; 81001; 83880; 84484; 85025; 85610; 85730; 93005; 96360; 99284; J7030

== ENCOUNTER → 2025-01-23 | Outpatient (CLI) | payer MEDICARE, BC, SELFPAY ==
[2025-01-23 12:43] LABS: Albumin, Serum 4.7 gm/dL (3.4-4.8); Anion Gap 10 (7-16); BUN/Creatinine Ratio 14 Ratio (12-20); Blood Urea Nitrogen 23 mg/dL (9-23); Calcium 9.2 mg/dL (8.3-10.6); Calcium (Corrected) 9.2 mg/dL (8.5-10.1); Carbon Dioxide 23.4 mMol/L (20.0-31.0); Chloride 108 mMol/L (98-107); Creatinine (Component) 1.7 mg/dL (0.6-1.3); Glucose 178 mg/dL (74-106); Osmolality,Calculated 288 (275-295); Phosphorous 2.7 mg/dL (2.4-5.1); Potassium 4.6 mMol/L (3.4-5.1); Sodium 141 mMol/L (136-145); eGFR 39 See Note
[2025-01-23 14:26] LABS: Parathyroid Hormone Intact 76.7 pg/ml (18.5-88.0)
[2025-01-23 14:50] LABS: Creatinine MALB Rnd Ur 85 mg/dL (30-125); Microalbumin Creat Ratio 159 mg/gCrea (<30); Microalbumin, Random Urine 135 mg/L (0-300)
== END | disposition home or self-care (01) ==
PROVIDERS: PCP Internal Medicine; Referring Provider Internal Medicine; Visit Provider Internal Medicine
DX: I12.9 Hypertensive chronic kidney disease with stage 1 through stage 4 chronic kidney disease, or unspecified chronic kidney disease (principal); N18.30 Chronic kidney disease, stage 3 unspecified; N25.81 Secondary hyperparathyroidism of renal origin
CPT/HCPCS: 36415; 80069; 82043; 82570; 83970